=== PATIENT | female | born 1935 | race Caucasian/White ===

== ENCOUNTER → 2016-05-26 17:29 | Outpatient (CLI) | payer MEDICARE, MEDICAID ==
[2015-07-19 11:59] VITALS: BMI 42.4
[~2016-05-26 17:29] MED LIST: ALENDRONATE SOD70 MG PO; ASPIRIN325 MG PO; BACTRIM DS TABL1 TAB PO; CALTRATE 600 M600 M1 PO; COREG12.5 MG PO; FERROUS SULFAT325 MG PO; FISH OIL 1,0001 CA1 PO; FLAGYL500 MG PO; FLORANEX / LACT1 TAB PO; GLUCOTROL ER2.5 MG PO; GLUCOVANCE 5/501 TAB PO; HYDROCHLOROTH12.5 M1 PO; LANTUS INSULIN10 ML SC; LANTUS INSULIN10 ML SQ; LASIX20 MG PO; LISINOPRIL5 MG PO; MICRO-K10 MEQ PO; MYCOSTATIN 500,05 ML PO; NORVASC5 MG PO; PLAVIX75 MG PO; PRAVACHOL20 MG PO; PREDNISONE20 MG PO; PRILOSEC20 MG PO; PROVENTIL HFA6.7 GM INH; TRICOR145 MG PO; VITAMIN B-12 PO
[2016-05-26 18:35] LABS: BASOPHILS 0.4 % (0.0-2.0); EOSINOPHILS 4.4 % (0-7); HEMATOCRIT 32.9 % (36.0-48.0); HEMOGLOBIN 10.2 g/dL (12-16); IMMATURE GRANULOCYTES 0.2 % (0-5); MCH 29.2 pg (26.0-34.0); MCV 94.3 fL (80.0-100.0); MEAN PLATELET VOLUME 11.5 fL (7.4-10.4); MONOCYTES 10.4 % (2-11); NEUTROPHILS 62.6 % (40-80); PLATELET COUNT 164 10x3/uL (130-400); RBC 3.49 10x6/uL (4.00-5.40); RDW 13.9 % (11.5-14.5)
[2016-05-26 18:36] LABS: ANION GAP 10.8 mmol/L (8-16); CALCIUM 10.2 mg/dL (8.5-10.1); CARBON DIOXIDE 32.5 mmol/L (21.0-32.0); CREATININE - SERUM 1.6 mg/dL (0.6-1.3); POTASSIUM - SERUM 4.3 mmol/L (3.5-5.1)
[2016-05-26 19:03] LABS: HEMOGLOBIN A1C 6.6 % (4.8-6.0)
== END | disposition home or self-care (01) ==
LOC: D.LABREF 17:29
PROVIDERS: Family Medicine
DX: I50.9 Heart failure, unspecified (principal); E11.9 Type 2 diabetes mellitus without complications; J44.9 Chronic obstructive pulmonary disease, unspecified

== ENCOUNTER 2016-06-03 10:37 | Inpatient (IN) | payer MEDICARE, MEDICAID ==
[~2016-06-03] VITALS: Ht 157.5 cm; Wt 100.0 kg
[~2016-06-03 10:37] MED LIST changes: -BACTRIM DS TABL1 TAB PO; -GLUCOTROL ER2.5 MG PO; -LANTUS INSULIN10 ML SC; -PRAVACHOL20 MG PO
[2016-06-03] MEDS ORDERED: GLUCOTROL ER2.5 MG PO (11:10)
[2016-06-03] MEDS ORDERED: PRAVACHOL20 MG PO (11:11)
[2016-06-03] MEDS ORDERED: COREG12.5 MG PO (11:12)
[2016-06-03 11:16] VITALS: BP 174/53; BMI 36.6
--- NOTE | 2016-06-03 11:24 | NUR ---
PT ARRIVED TO ROOM VIA WHEELCHAIR. PARTIAL ADMIT. XRAY TOOK PT DOWN TO GET CHEST XRAY WILL FINISH ADMIT WHEN SHE ARRIVES BACK UP.
--- NOTE | 2016-06-03 11:47 | NUR ---
SITED PT TO R HAND 22G X2 STICKS. STARTED IV LEVAQUIN AND NS RUNNING NO PROBLEMS. PT WAITING ON LUNCH TRAY WILL CONT TO MONITOR.
[2016-06-03 12:08] LABS: BASOPHILS 0.2 % (0.0-2.0); EOSINOPHILS 2.6 % (0-7); HEMATOCRIT 33.4 % (36.0-48.0); HEMOGLOBIN 10.6 g/dL (12-16); LYMPHOCYTES 15.3 % (15-50); MCH 29.8 pg (26.0-34.0); MCHC 31.7 g/dL (31.0-37.0); MCV 93.8 fL (80.0-100.0); MEAN PLATELET VOLUME 10.6 fL (7.4-10.4); MONOCYTES 7.5 % (2-11); NEUTROPHILS 74.4 % (40-80); PLATELET COUNT 158 10x3/uL (130-400); RBC 3.56 10x6/uL (4.00-5.40); WBC 5.5 10x3/uL (4.8-10.8)
[2016-06-03 12:19] LABS: ALBUMIN 3.2 g/dL (3.4-5.0); BILIRUBIN - TOTAL 0.43 mg/dL (0.2-1.3); CALCIUM 10.1 mg/dL (8.5-10.1); CREATININE - SERUM 1.5 mg/dL (0.6-1.3)
[2016-06-03 12:29] VITALS: BP 174/53
[2016-06-03] MEDS ORDERED: LANTUS INSULIN10 ML SC (15:21)
[2016-06-03 16:42] VITALS: BP 129/31
--- NOTE | 2016-06-03 17:06 | NUR ---
APPLIED TELE TO PT SINUS RHYTHM 69 BPM. GIVEN INCENTIVE BRIAN TO USE AND GIVEN INSTRUCTIONS ON HOW TO USE.
[2016-06-03 20:00] VITALS: BP 164/50
--- NOTE | 2016-06-03 23:18 | NUR ---
PT ASSESSMENT COMPLETED AT THIS TIME CALL LIGHT IN REACH SRX2 BED LOW AND LOCKED NO DISTRESS OBSERVED RESPERATIONS EVEN AND UNLABORED WILL MONITOR
[2016-06-04 01:44] VITALS: BP 146/59
[2016-06-04 04:47] LABS: BASOPHILS 0 % (0.0-2.0); EOSINOPHILS 0 % (0-7); HEMATOCRIT 32.2 % (36.0-48.0); LYMPHOCYTES 17.9 % (15-50); MCH 29.2 pg (26.0-34.0); MCHC 31.1 g/dL (31.0-37.0); MCV 94.2 fL (80.0-100.0); MONOCYTES 3.4 % (2-11); NEUTROPHILS 78.7 % (40-80); PLATELET COUNT 148 10x3/uL (130-400); RBC 3.42 10x6/uL (4.00-5.40); RDW 14.1 % (11.5-14.5)
[2016-06-04 04:51] LABS: WBC 2.6 10x3/uL (4.8-10.8)
[2016-06-04 04:57] LABS: ANION GAP 10.6 mmol/L (8-16); CALCIUM 9.4 mg/dL (8.5-10.1); CARBON DIOXIDE 33.6 mmol/L (21.0-32.0); CREATININE - SERUM 1.6 mg/dL (0.6-1.3); POTASSIUM - SERUM 4.2 mmol/L (3.5-5.1)
--- NOTE | 2016-06-04 07:11 | NUR ---
PT SITTING UP IN BED DRINKING HER COFFEE. DENIES NEEDS WILL CONT TO MONITOR.
[2016-06-04 08:00] VITALS: BP 190/60
[2016-06-04 12:00] VITALS: BP 144/42
[2016-06-04 12:12] VITALS: Ht 157.5 cm; Wt 100.0 kg
--- NOTE | 2016-06-04 12:40 | CN ---
PATIENT NAME:KAVON JACKSON MEDICAL RECORD: [id number] : 35 LOCATION:D.M2 D.2106 ADMIT DATE: 06/03/16 ACCOUNT: [id number] CONSULTING PHYSICIAN: SHUN SHUKLA MD REFERRING PHYSICIAN: KAILEY CERON MD DATE OF CONSULTATION: 06/03/2016 CONSULT REQUESTING PHYSICIAN: Kailey Ceron MD. REASON FOR CONSULTATION: Pneumonia, left lower lobe, with acute exacerbation of COPD. HISTORY OF PRESENT ILLNESS: Ms. Jackson is an 81-year-old female, very poor historian. The patient is sick for the last few days. She is wheezing. She is coughing. She has shortness of breath. She was seen in the PCP office today and the chest radiograph showed some infiltrate and the patient was directly admitted. REVIEW OF SYSTEMS: Mainly in the history of present illness. PAST MEDICAL HISTORY: 1. COPD. 2. Coronary artery disease. 3. Congestive heart failure. 4. Hyperlipidemia. 5. Hypertension. 6. Chronic hypoxic respiratory failure. 7. Diabetes mellitus. 8. Diabetic neuropathy. 9. History of CVA. PAST SURGICAL HISTORY: 1. She has colonoscopy in the past. 2. Cholecystectomy. 3. Cardiac catheterization and stent placement. ALLERGIES: SHE IS ALLERGIC TO TESSALON PERLES. PERSONAL AND SOCIAL HISTORY: She is a heavy smoker, secondhand smoking exposure. She herself did smoke. She is a nondrinker. FAMILY HISTORY: Noncontributory. PHYSICAL EXAMINATION: GENERAL: Now, the patient is lying comfortably. She is not in acute distress. VITAL SIGNS: The blood pressure is 174/53, pulse is 66, respirations 19, temperature 98.2, SpO2 is 91% on 2 L nasal cannula. HEENT: Conjunctivae pink, sclerae nonicteric. NECK: Supple. No JVD. CHEST: Excursion is minimal on both sides, prolonged expiration with wheezing. There are crackles at the left base. HEART: Regular, normal sound, no murmur. ABDOMEN: Soft. Bowel sounds present. No hepatosplenomegaly. RECTAL: Deferred. EXTREMITIES: No cyanosis, no clubbing, no pedal edema. CONSULT REPORT [id number] KAVON JACKSON SKIN: Warm, normal turgor. CENTRAL NERVOUS SYSTEM: The patient is awake and alert. There are no obvious cranial nerve abnormalities. The gait was not tested. IMAGING: Chest radiograph, there is hyperinflation. There is infiltrate in left lower lobe. LABORATORY DATA: Hemoglobin 10.6, hematocrit 33.4. Chemistry: Sodium 134, potassium is 4, BUN is 33, creatinine 1.5, glucose 91. IMPRESSION: 1. Acute exacerbation of chronic obstructive pulmonary disease. 2. Chronic hypoxic respiratory failure. 3. Pneumonia, left lower lobe. 4. Coronary artery disease. 5. Congestive heart failure, possible systolic dysfunction. 6. Chronic kidney disease. RECOMMENDATION: Adjust the dose of Levaquin. Start her on Rocephin IV, methylprednisolone IV, albuterol/ipratropium nebulizer, Brovana and budesonide nebulizer. Continue Mucinex DM [address] Ceron, once again, thanks for involving me in the care of Ms. Jackson. TRANSINT:[id number] Voice Confirmation ID: [id number] DOCUMENT ID: [id number] SHUN SHUKLA MD at 1240 CC: KAILEY CERON MD [id number] DICTATION DATE: 06/03/16 1454 FISHING FLOATS ASSEMBLER: 06/03/[address] [facility] [address] [place] [address]
--- NOTE | 2016-06-04 13:27 | NUR ---
RECEIVED PT REPORT. WILL CONTINUE PLAN OF CARE. NO OTHER NEEDS. WILL CONTINUE TO MONITOR.
[2016-06-04 16:00] VITALS: BP 146/50
--- NOTE | 2016-06-04 16:26 | NUR ---
Patient Name: KAVON MONACO Admission Status: Urgent Accout number: [id number] Admission Date: 06-03-2016 : 1935 Admission Diagnosis:PNEUMONIA, UNSPECIFIED ORGANISM Attending: CIERA Current LOS: 1 Anticipated DC Date: Planned Disposition: Home Primary Insurance: [facility] Discharge Planning Comments: * Is the patient Alert and Oriented? Yes 0 * How many steps to enter\exit or inside your home? 4-5 0 * PCP DR. ROBERTSON 0 * Pharmacy [facility] [address] 0 * Preadmission Environment Home with Family 0 * ADLs Independent 0 * Equipment Glucometer Nebulizer Oxygen Rolling Walker 0 * Other Equipment HOME AND PORTABLE OXYGEN [facility] PATIENT - MEDICAL EQUIPMENT PROVIDER 0 * List name and contact numbers for known caregivers / representatives who currently or will assist patient after discharge: ERIN MONACO, SON, 0 * Community resources currently utilized Other 0 * Please name any agencies selected above. [facility] 0 * Additional services required to return to the preadmission environment? No 0 * Can the patient safely return to the preadmission environment? Yes 0 * Has this patient been hospitalized within the prior 30 days at any hospital? No 0 CM MET WITH PT IN ROOM TO DISCUSS DISCHARGE PLANNING AND NEEDS. PT REPORTS LIVING AT HOME INDEPENDENTLY WITH HER SON AND DAUGHTER. PT REPORTS HAVING ALL NEEDED MEDICAL EQUIPMENT WELL A PORTABLE OXYGEN CONCENTRATOR FROM [facility] PATIENT. PT HAS [facility] AND NO OTHER OUTSIDE SERVICES ASSISTING IN THE HOME. CM DISCUSSED AVAILABILITY OF HOME HEALTH, REHAB SERVICES AND MEDICAL EQUIPMENT. PT DENIES DISCHARGE NEEDS, REPORTS HER SON OR DAUGHTER WILL PICK HER UP FOR DISCHARGE HOME. PT PLANS TO DISCHARGE HOME WITH FAMILY, DENIES DISCHARGE NEEDS AT THIS TIME. CM TO FOLLOW AND ASSIST NEEDED. Nurse Practitioner Physician Assistant: Mick Albarran
[2016-06-04 20:24] VITALS: BP 177/48
--- NOTE | 2016-06-04 21:32 | NUR ---
SITTING IN BEDSIDE CHAIR. ALERT ORIENTED CONVERSANT. DENIES NEEDS. ASSISTED WITH RETURNING TO BED. AMBULATED INDEPENDANTLY.
[2016-06-05 01:07] VITALS: BP 166/52
[2016-06-05 05:01] VITALS: BP 150/56
[2016-06-05 05:34] LABS: BASOPHILS 0 % (0.0-2.0); EOSINOPHILS 0 % (0-7); HEMATOCRIT 30.5 % (36.0-48.0); HEMOGLOBIN 9.6 g/dL (12-16); IMMATURE GRANULOCYTES 0.3 % (0-5); LYMPHOCYTES 13.5 % (15-50); MCH 29.5 pg (26.0-34.0); MCHC 31.5 g/dL (31.0-37.0); MCV 93.8 fL (80.0-100.0); MEAN PLATELET VOLUME 10.7 fL (7.4-10.4); MONOCYTES 4.5 % (2-11); NEUTROPHILS 81.7 % (40-80); PLATELET COUNT 158 10x3/uL (130-400); RBC 3.25 10x6/uL (4.00-5.40); RDW 14.3 % (11.5-14.5)
[2016-06-05 05:37] LABS: WBC 3.3 10x3/uL (4.8-10.8)
[2016-06-05 05:55] LABS: ANION GAP 9.7 mmol/L (8-16); CALCIUM 9.2 mg/dL (8.5-10.1); CARBON DIOXIDE 32.1 mmol/L (21.0-32.0); CREATININE - SERUM 1.7 mg/dL (0.6-1.3); POTASSIUM - SERUM 4.8 mmol/L (3.5-5.1)
[2016-06-05 07:00] VITALS: BP 195/64
--- NOTE | 2016-06-05 07:23 | NUR ---
AM ROUNDING- PT SITTING UP IN CHAIR TALKING ON CELL PHONE. ON 02 AT 2L VIA NC. IV SEEN TO RIGHT HAND WITH NS RUNNING AT 50CC. PT IS ALERT AND ORIENTED. UP AD RADHA AND HAS SCDS AT BEDSIDE. NO NEED AT CURRENT TIME. WILL CONTINUE TO MONITOR.
--- NOTE | 2016-06-05 07:38 | NUR ---
ON MONITOR SHOWING SR, HR 66. PT DOES HAVE ELVATED T WAVE. WILL WAIT UNITL MAKES ROUNDS AND NOTIFY DOCTOR.
--- NOTE | 2016-06-05 10:40 | NUR ---
ALLIE FLEMING, SUPERVISOR ASBESTOS REMOVAL TO NOTIFY HER OF PTS ELEVATED TWAVE ON TELEMETRY. PTS POTASSIUM LEVEL IS 4.8. WILL CONTINUE TO MONITOR AND AWAIT CALLBACK.
--- NOTE | 2016-06-05 11:53 | NUR ---
1115- DR. CERON ON UNIT, NOTIFIED HER OF PT HAVING AN ELEVATED T-WAVE. NO NEW ORDERS RECEIVED. WILL CONTINUE TO MONITOR.
[2016-06-05 12:00] VITALS: BP 171/59
--- NOTE | 2016-06-05 12:08 | NUR ---
DR. CERON ON UNIT. NOTIFIED HER OF PTS BLOOD PRESSURE BEING 171/59. NO NEW ORDERS RECEIVED. WILL CONTINUE TO MONITOR.
[2016-06-05 16:00] VITALS: BP 164/56
--- NOTE | 2016-06-05 18:06 | NUR ---
PT SITTING UP IN CHAIR WATCHING TV. NO NEED AT CURRENT TIME. WILL CONTINUE TO MONITOR.
[2016-06-05 20:15] VITALS: BP 158/44
--- NOTE | 2016-06-05 22:08 | NUR ---
SITTING IN BEDSIDE CHAIR. ALERT ORIENTED CONVERSANT. NO ACUTE DISTRESS NOTED. DENIES NEEDS. FAMILY AT BEDSIDE.
[2016-06-06 00:05] VITALS: BP 167/50
[2016-06-06 04:12] VITALS: BP 154/53
--- NOTE | 2016-06-06 05:00 | NUR ---
PT RESTING WITH NO DISTRESS. RESPS EVEN/NONLABORED. CPOC.
[2016-06-06 05:02] LABS: BASOPHILS 0 % (0.0-2.0); EOSINOPHILS 0 % (0-7); HEMATOCRIT 32.2 % (36.0-48.0); LYMPHOCYTES 14.8 % (15-50); MCH 29.1 pg (26.0-34.0); MCHC 31.1 g/dL (31.0-37.0); MCV 93.6 fL (80.0-100.0); MEAN PLATELET VOLUME 10.3 fL (7.4-10.4); MONOCYTES 4.5 % (2-11); NEUTROPHILS 80.7 % (40-80); PLATELET COUNT 165 10x3/uL (130-400); RBC 3.44 10x6/uL (4.00-5.40); RDW 14.4 % (11.5-14.5); WBC 3.1 10x3/uL (4.8-10.8)
[2016-06-06 05:18] LABS: ANION GAP 11.2 mmol/L (8-16); CALCIUM 9.5 mg/dL (8.5-10.1); CARBON DIOXIDE 32.7 mmol/L (21.0-32.0); CREATININE - SERUM 1.6 mg/dL (0.6-1.3); POTASSIUM - SERUM 4.9 mmol/L (3.5-5.1)
--- NOTE | 2016-06-06 07:08 | NUR ---
AM ROUNDING- PT SITTING UP IN CHAIR WITH EYES OPEN RESTING. ON MONITOR SHOWING SR, HR 69 WITH TW[address] ELEVATION. NOTIFIED DR. CERON YESTERDAY ON SHIFT OF THIS WITH NO NEW ORDERS. FSBS ACHS THAT WAS COVERED THIS AM BY BAND PRESSER NURSE SOLIS MARTÍNEZ. ON 02 AT 2L VIA NC. IV SEEN TO RIGHT HAND WITH NS RUNNING AT 50CC. NO NEED AT CURRENT TIME. WILL CONTINUE TO MONITOR.
[2016-06-06 09:00] VITALS: BP 169/53
[2016-06-06 12:00] VITALS: BP 177/57
[2016-06-06 16:00] VITALS: BP 182/59
--- NOTE | 2016-06-06 18:16 | NUR ---
PT SITTING UP IN CHAIR WITH EYES OPEN RESTING. DENIES ANY NEED AT CURRENT TIME. WILL CONTINUE TO MONITOR.
[2016-06-06 20:00] VITALS: BP 160/48
--- NOTE | 2016-06-06 20:10 | NUR ---
RESUMED CARE OF PT, SITTING IN CHAIR TALKING ON PHONE, IV-R.HAND-50, [id number], DENIES ANY NEEDS, CALL LIGHT IN REACH, WILL CONTINUE TO MONITOR
[2016-06-07] VITALS: BP 150/53
--- NOTE | 2016-06-07 01:36 | NUR ---
PT SITTING UP IN CHAIR. NO DISTRESS NOTED. WILL CONTINUE TO MONITOR. CALL LIGHT WITHIN REACH.
[2016-06-07 04:00] VITALS: BP 192/63
--- NOTE | 2016-06-07 04:54 | NUR ---
PT REQUEST THAT BLOOD SUGAR BE CHECK, BS-52- GAVE ORANGE JUICE AND YG TALAVERA WILL RECHECK
[2016-06-07 05:30] LABS: BASOPHILS 0 % (0.0-2.0); EOSINOPHILS 0.2 % (0-7); HEMATOCRIT 34.6 % (36.0-48.0); HEMOGLOBIN 10.9 g/dL (12-16); IMMATURE GRANULOCYTES 0.2 % (0-5); LYMPHOCYTES 27.6 % (15-50); MCH 29.5 pg (26.0-34.0); MCHC 31.5 g/dL (31.0-37.0); MCV 93.5 fL (80.0-100.0); MEAN PLATELET VOLUME 10.3 fL (7.4-10.4); MONOCYTES 10.7 % (2-11); NEUTROPHILS 61.3 % (40-80); RDW 14.3 % (11.5-14.5)
[2016-06-07 05:35] LABS: PLATELET COUNT 220 10x3/uL (130-400); WBC 4.8 10x3/uL (4.8-10.8)
[2016-06-07 05:50] LABS: ANION GAP 8.4 mmol/L (8-16); CALCIUM 9.7 mg/dL (8.5-10.1); CARBON DIOXIDE 33.7 mmol/L (21.0-32.0); CREATININE - SERUM 1.5 mg/dL (0.6-1.3)
[2016-06-07 05:52] LABS: POTASSIUM - SERUM 4.1 mmol/L (3.5-5.1)
--- NOTE | 2016-06-07 07:40 | NUR ---
PT IS ALERT. RECEIVED PT REPORT. WILL CONTINUE PLAN OF CARE. NO OTHER NEEDS.
[2016-06-07 08:16] VITALS: BP 180/43
--- NOTE | 2016-06-07 09:57 | NUR ---
PT IS ALERT. ASSESSMENT DONE PER FLOWSHEET. NO OTHER NEEDS AT THIS TIME. WILL CONTINUE TO MONTIOR.
[2016-06-07 11:37] VITALS: BP 165/58
--- NOTE | 2016-06-07 13:57 | NUR ---
NO SS OF DISTRESS AT THIS TIME. WILL CONTINUE TO MONTIOR.
--- NOTE | 2016-06-07 14:41 | NUR ---
PT IS ALERT. FAMILY AT BEDSIDE. PT WAS GIVEN LOTION FOR DRY SKIN UPON REQUEST SHE SAID SHE WAS "DRYING UP". SHE WAS IN NO OTHER NEEDS AT THIS TIME. FAMILY STATES THAT SHE WAS ON NEOSPORIN WHILE AT THE HOUSE FOR THE DRYER SPOTS AND RN INFORMED THEM THAT THIS WOULD HAVE TO BE ORDERED BY PHYSICIAN. WILL CONTINUE TO JAMES.
[2016-06-07 15:10] LABS: T4 THYROXINE 10.4 ug/dL (4.7-13.3); THYROID STIMULATING HORMONE 3.74 uIU/mL (0.36-3.74)
[2016-06-07 15:53] VITALS: BP 144/59
--- NOTE | 2016-06-07 19:26 | NUR ---
PT IS SITTING IN A CHAIR IN HER ROOM DOING A UPDRAFT TX AT THIS TIME. SHE IS ALERT AND ORIENTED X 3. DENIES ACUTE DISCOMFORT. NO SOB NOTED. IV INFUSING TO RIGHT HAND WITHOUT DIFFICULTY. NO REDNESS OR EDEMA NOTED. O2 IS ON @ 2LPM PER NC. TELEMETRY UNIT IS INTACT. SR'S ARE UP X 2 WHILE IN BED. CALL LIGHT AND BEDSIDE TABLE ARE WITHIN EASY REACH.
[2016-06-07 20:00] VITALS: BP 142/42
--- NOTE | 2016-06-07 22:34 | NUR ---
PT IS RESTING IN A CHAIR IN HER ROOM WATCHING TV. NO NEEDS VOICED.
--- NOTE | 2016-06-07 23:40 | NUR ---
SITTING UP IN BEDSIDE CHAIR WITH BLANKET OVER LAP. VOICES NO C/O PAIN OR DISCOMFORT AT THIS TIME. C/L IN REACH. CONTINUE TO MONITOR.
[2016-06-08] VITALS: BP 148/49
--- NOTE | 2016-06-08 01:48 | NUR ---
RESTING IN BED WITH EYES CLOSED. NO DISTRESS NOTED.
--- NOTE | 2016-06-08 03:37 | NUR ---
PT RESTING IN BED WITH EYES CLOSED.
[2016-06-08 06:15] LABS: BASOPHILS 0 % (0.0-2.0); EOSINOPHILS 0.3 % (0-7); HEMATOCRIT 35.9 % (36.0-48.0); HEMOGLOBIN 11.2 g/dL (12-16); IMMATURE GRANULOCYTES 0.3 % (0-5); LYMPHOCYTES 27.8 % (15-50); MCH 29.2 pg (26.0-34.0); MCHC 31.2 g/dL (31.0-37.0); MCV 93.5 fL (80.0-100.0); MEAN PLATELET VOLUME 10.5 fL (7.4-10.4); NEUTROPHILS 61.6 % (40-80); PLATELET COUNT 229 10x3/uL (130-400); RBC 3.84 10x6/uL (4.00-5.40); RDW 14.7 % (11.5-14.5); WBC 3.6 10x3/uL (4.8-10.8)
[2016-06-08 06:26] LABS: ANION GAP 12.2 mmol/L (8-16); CARBON DIOXIDE 31.1 mmol/L (21.0-32.0); CREATININE - SERUM 1.7 mg/dL (0.6-1.3); POTASSIUM - SERUM 4.3 mmol/L (3.5-5.1)
--- NOTE | 2016-06-08 06:40 | NUR ---
PT IS SITTING IN A CHAIR AT BEDSIDE WATCHING TV. NO NEEDS VOICED.
--- NOTE | 2016-06-08 07:09 | NUR ---
RECEIVED PLAN OF CARE. NO OTHER NEEDS AT THIS TIME. WILL CONTINUE TO MONTIOR.
[2016-06-08 07:46] VITALS: BP 171/50
[2016-06-08 11:36] VITALS: BP 177/54
--- NOTE | 2016-06-08 14:28 | NUR ---
PT IS ALERT. ASSESSMENT DONE PER FLOWSHEET. NO OTHER NEEDS AT THIS TIME,.
[2016-06-08 15:18] VITALS: BP 154/48
--- NOTE | 2016-06-08 19:35 | NUR ---
ASSESSMENT COMPLETE, A&O. SITTING UP IN CHAIR AT BED SIDE. UP DRAFT IN PROGRESS. IV TO LEFT HAND WITH NS INFUSING AT 50, SITE CLEAN AND DRY. PT DENIES PAIN OR NEEDS, BED LOW, CL IN REACH.
[2016-06-08 20:02] VITALS: BP 159/64
--- NOTE | 2016-06-08 20:38 | NUR ---
HS MEDS GIVEN, BS 181, COVERED PER S/S. WILL CONT TO MONITOR.
--- NOTE | 2016-06-09 00:13 | NUR ---
ANSWERED CL. PT ASKING FOR BLOOD SUGAR TO BED CHECKED. RESULTED 39, SNACKS PROVIDED, GRAHM CRACKERS WITH PEANUTBUTTER, MILK, ORANGE JUICE AND APPLE SAUCE. WILL CONT TO MONITOR.
[2016-06-09 01:39] VITALS: BP 162/55
--- NOTE | 2016-06-09 03:26 | NUR ---
RESTING WITH EYES CLOSED, RESPERATIONS EVEN, NO S/S DISTRESS NOTED.
--- NOTE | 2016-06-09 04:11 | NUR ---
PT LAYING IN BED NO DISTRESS OBSERVED WILL MONITOR
[2016-06-09 04:37] VITALS: BP 175/46
[2016-06-09 08:00] VITALS: BP 103/36
[2016-06-09 09:34] LABS: BASOPHILS 0.2 % (0.0-2.0); EOSINOPHILS 1.1 % (0-7); HEMATOCRIT 32.7 % (36.0-48.0); HEMOGLOBIN 10.3 g/dL (12-16); IMMATURE GRANULOCYTES 0.2 % (0-5); LYMPHOCYTES 12.4 % (15-50); MCH 29.1 pg (26.0-34.0); MCHC 31.5 g/dL (31.0-37.0); MCV 92.4 fL (80.0-100.0); MEAN PLATELET VOLUME 10.4 fL (7.4-10.4); MONOCYTES 8.8 % (2-11); NEUTROPHILS 77.3 % (40-80); PLATELET COUNT 191 10x3/uL (130-400); RBC 3.54 10x6/uL (4.00-5.40); RDW 14.6 % (11.5-14.5)
[2016-06-09 09:36] LABS: WBC 6.4 10x3/uL (4.8-10.8)
[2016-06-09 09:44] LABS: ANION GAP 10.7 mmol/L (8-16); CALCIUM 9.8 mg/dL (8.5-10.1); CARBON DIOXIDE 31.6 mmol/L (21.0-32.0); CREATININE - SERUM 1.8 mg/dL (0.6-1.3); POTASSIUM - SERUM 4.3 mmol/L (3.5-5.1)
[2016-06-09 12:09] VITALS: BP 109/46
--- NOTE | 2016-06-09 13:27 | NUR ---
Nutrition follow-up: Diet: ADA consistent CHO PO Intake ~75-100% of meals Labs reviewed; glucose has been trending low Wt: 216# +BM Will continue to provide food choices with selective menus and honor food preferences within diet restrictions. RDN following.
[2016-06-09 17:46] VITALS: BP 147/60
[2016-06-09 19:56] VITALS: BP 149/50
--- NOTE | 2016-06-09 21:00 | NUR ---
PT SITTING UP IN CHAIR. COUGH IN PRODUCTIVE WITH CLEAR SPUTUM. NOT ENOUGH FOR COLLECTION BUT WORKING ON IT. COMPLETE ASSESSMENT PER FLOWSHEET. PT WILL BE NPO AFTER 0600 FOR BRONCHOSCOPY TOMORROW. NO OTHER NEEDS. WILL CONTINUE TO MONITOR.
[2016-06-10] VITALS (11 sets, daily range): BP systolic 103–153; BP diastolic 39–89
[2016-06-10 07:04] LABS: ANION GAP 12.9 mmol/L (8-16); CALCIUM 9.9 mg/dL (8.5-10.1); CARBON DIOXIDE 29.1 mmol/L (21.0-32.0); CREATININE - SERUM 1.9 mg/dL (0.6-1.3)
[2016-06-10 07:09] LABS: BASOPHILS 0 % (0.0-2.0); EOSINOPHILS 1.8 % (0-7); HEMATOCRIT 32.6 % (36.0-48.0); HEMOGLOBIN 10.3 g/dL (12-16); IMMATURE GRANULOCYTES 0.2 % (0-5); LYMPHOCYTES 20.6 % (15-50); MCH 29.1 pg (26.0-34.0); MCHC 31.6 g/dL (31.0-37.0); MCV 92.1 fL (80.0-100.0); MEAN PLATELET VOLUME 10.8 fL (7.4-10.4); MONOCYTES 8.9 % (2-11); NEUTROPHILS 68.5 % (40-80); PLATELET COUNT 185 10x3/uL (130-400); RBC 3.54 10x6/uL (4.00-5.40); RDW 14.8 % (11.5-14.5); WBC 5.6 10x3/uL (4.8-10.8)
--- NOTE | 2016-06-10 09:41 | NUR ---
PT IS ALERT. ASSESSMENT DONE PER FLOWSHEET. NO OTHER NEEDS AT THIS TIME. WILL CONTINUE TO MONITOR.
--- NOTE | 2016-06-10 11:00 | NUR ---
22G IV STARTED IN RIGHT HAND. SALINE LOCKED. PT TOLERATED WELL. IV IN LEFT HAND DCD WITH CATH TIP INTACT. RESP. IN ROOM
--- NOTE | 2016-06-10 12:47 | NUR ---
PT RESTING SP BROHNCOSCOPY. WILL CONTINUE TO MONITOR. NO SS OF DISTRESS AT THIS TIME. NO OTHER NEEDS
[2016-06-11] VITALS (9 sets, daily range): BP systolic 125–153; BP diastolic 41–53
--- NOTE | 2016-06-11 01:19 | NUR ---
PATIENT IN CHAIR, NO COMPLAINTS OF PAIN OR NEEDS INDICATED AT THIS TIME. CALL LIGHT WITHIN REACH. ASESSMENT COMPLETE PER FLOWSHEET. CONTINUE TO MONITOR
[2016-06-11 04:43] LABS: BASOPHILS 0 % (0.0-2.0); EOSINOPHILS 0.1 % (0-7); HEMATOCRIT 33.7 % (36.0-48.0); HEMOGLOBIN 10.6 g/dL (12-16); IMMATURE GRANULOCYTES 0.2 % (0-5); LYMPHOCYTES 7.9 % (15-50); MCH 29.3 pg (26.0-34.0); MCHC 31.5 g/dL (31.0-37.0); MCV 93.1 fL (80.0-100.0); MEAN PLATELET VOLUME 10.8 fL (7.4-10.4); MONOCYTES 4.8 % (2-11); PLATELET COUNT 169 10x3/uL (130-400); RBC 3.62 10x6/uL (4.00-5.40); RDW 14.7 % (11.5-14.5)
[2016-06-11 04:54] LABS: ANION GAP 9.9 mmol/L (8-16); CALCIUM 9.4 mg/dL (8.5-10.1); CARBON DIOXIDE 30.4 mmol/L (21.0-32.0); CREATININE - SERUM 2.1 mg/dL (0.6-1.3); POTASSIUM - SERUM 4.3 mmol/L (3.5-5.1)
--- NOTE | 2016-06-11 07:00 | NUR ---
Pt. was received at the beginning of this shift sitting in the chair beside her bed with her granddaughter visiting her. Stable condition observed. Vital signs: Temp. 97.8, pulse 62, resp. 17, b/p143/42, 02Sat. 93%. Pt. is on an oxymizer with 10L's going. Rt. hand with saline lock that is patent. Telemetry on and working properly. Pt. is alert and oriented x 3. Pt. denied any concerns or problems. Will be monitoring her frequently and assisting prn with adl's. Call light is in reach.
--- NOTE | 2016-06-11 14:06 | NUR ---
IV access-22 gauge inserted in right hand for IV access. Bhavana Gomez RN
--- NOTE | 2016-06-11 14:39 | NUR ---
Pt. has had her IV resited per hospital IV nurse. Levofloxin infusing via pump at prescribed rate of flow. Blood sugar levels are being monitored and treated per MD order. Pt. is sitting beside bed in chair with granddaughter present. Breathing treatments are being administered throughout the shift as well. Pt. continues to be in stable condition. No voiced complaints to staff. Continuing to monitor and assist prn.
[2016-06-11 15:22] LABS: AFB SPECIMEN PROCESSING Concentration (())
--- NOTE | 2016-06-11 17:21 | NUR ---
Pt. is sitting in chair beside her bed with pillow behind her for stability. She has eatten almost 100% of her supper and is watching tv. She is friendly and seems to be happy this afternoon. Her blood sugar levels have been monitored closely today.
[2016-06-12 00:15] VITALS: BP 132/60
[2016-06-12 04:20] VITALS: BP 131/44
[2016-06-12 05:22] LABS: BASOPHILS 0 % (0.0-2.0); EOSINOPHILS 0 % (0-7); HEMOGLOBIN 9.6 g/dL (12-16); IMMATURE GRANULOCYTES 0.3 % (0-5); LYMPHOCYTES 11.3 % (15-50); MCH 29.1 pg (26.0-34.0); MEAN PLATELET VOLUME 10.5 fL (7.4-10.4); MONOCYTES 7.3 % (2-11); NEUTROPHILS 81.1 % (40-80); PLATELET COUNT 157 10x3/uL (130-400); RDW 14.6 % (11.5-14.5)
[2016-06-12 05:26] LABS: MCV 90.9 fL (80.0-100.0); WBC 6.2 10x3/uL (4.8-10.8)
[2016-06-12 05:53] LABS: ALBUMIN 2.5 g/dL (3.4-5.0); BILIRUBIN - TOTAL 0.4 mg/dL (0.2-1.3); CALCIUM 8.9 mg/dL (8.5-10.1); CREATININE - SERUM 2.1 mg/dL (0.6-1.3); PROTEIN - SERUM 5.8 g/dL (6.4-8.2)
--- NOTE | 2016-06-12 07:23 | NUR ---
RECEIVED PT REPORT. NO OTHER NEEDS AT THIS TIME. WILL CONTINUE TO MONITOR.
[2016-06-12 08:39] VITALS: BP 156/50
--- NOTE | 2016-06-12 10:35 | NUR ---
PT IS ALERT. ASSESSMENT DONE PER FLOWSHEET. NO OTHER NEEDS AT THIS TIME. WILL CONTINUE TO MONITOR.
[2016-06-12 12:22] VITALS: BP 168/50
[2016-06-12 12:37] LABS: % SATURATION 7 % (15-55); IRON 23 ug/dl (35-150); TOTAL IRON BIND CAPACITY 296 ug/dl (260-445); UNSAT IRON BIND CAPACITY 273 ug/dl (150-375)
--- NOTE | 2016-06-12 13:50 | NUR ---
NO SS OF DISTRESS AT THIS TIME. WILL CONTINUE TO MONITOR. NO OTHER NEEDS
[2016-06-12 16:14] VITALS: BP 151/55
--- NOTE | 2016-06-12 19:09 | NUR ---
RESUMED CARE OF PT, SITTING UP IN CHAIR, 02-2L, IV-R.HAND-SL, [id number], DENIES ANY NEEDS AT THIS TIME, WILL CONTINUE TO MONITOR
[2016-06-12 20:02] VITALS: BP 134/37
--- NOTE | 2016-06-12 21:40 | NUR ---
PT LAYING IN BED, WATCHING TV. NO NEEDS OR C/O VOICED. WILL CONT TO MONITOR.
--- NOTE | 2016-06-12 23:53 | NUR ---
PT SITTING UP IN CHAIR SLEEPING, CALL LIGHT IN REACH
[2016-06-13 00:14] VITALS: BP 129/40
--- NOTE | 2016-06-13 02:12 | NUR ---
WALKED TO BATHROOM, WHEN COMING BACK COMPLAINED OF SOB, PLACED O2 ON HER 2L
[2016-06-13 04:13] VITALS: BP 134/41
[2016-06-13 06:06] LABS: BASOPHILS 0 % (0.0-2.0); EOSINOPHILS 0.1 % (0-7); HEMATOCRIT 32.3 % (36.0-48.0); HEMOGLOBIN 10.4 g/dL (12-16); IMMATURE GRANULOCYTES 0.4 % (0-5); LYMPHOCYTES 12.5 % (15-50); MCH 29.3 pg (26.0-34.0); MCHC 32.2 g/dL (31.0-37.0); MEAN PLATELET VOLUME 10.3 fL (7.4-10.4); RBC 3.55 10x6/uL (4.00-5.40); RDW 14.5 % (11.5-14.5); WBC 7.5 10x3/uL (4.8-10.8)
[2016-06-13 06:11] LABS: PLATELET COUNT 192 10x3/uL (130-400)
[2016-06-13 06:23] LABS: ANION GAP 11.1 mmol/L (8-16); CALCIUM 9.3 mg/dL (8.5-10.1); CARBON DIOXIDE 30.3 mmol/L (21.0-32.0); CREATININE - SERUM 1.8 mg/dL (0.6-1.3); POTASSIUM - SERUM 4.4 mmol/L (3.5-5.1)
[2016-06-13 08:00] VITALS: BP 156/59
--- NOTE | 2016-06-13 10:39 | NUR ---
UP IN CHAIR WITH CALL LIGHT IN REACH. TELEMETRY SR. 02 SAT 98% ON RA. WILL CONT. PLAN OF CARE.
[2016-06-13 11:53] VITALS: BP 157/55
[2016-06-13 15:57] VITALS: BP 162/67
--- NOTE | 2016-06-13 19:30 | NUR ---
SITTING UP IN CHAIR, WITH NO S/S/ RESP UNLAV. UP AD RADHA W/O DIFF. DENIES NEEDS AT THIS TIME. C/L IN REACH.
[2016-06-13 20:36] VITALS: BP 134/50
[2016-06-14 01:24] VITALS: BP 121/54
[2016-06-14 04:35] LABS: BASOPHILS 0 % (0.0-2.0); EOSINOPHILS 0.2 % (0-7); HEMATOCRIT 32.6 % (36.0-48.0); HEMOGLOBIN 10.4 g/dL (12-16); IMMATURE GRANULOCYTES 0.4 % (0-5); LYMPHOCYTES 15.6 % (15-50); MCH 29.2 pg (26.0-34.0); MCHC 31.9 g/dL (31.0-37.0); MCV 91.6 fL (80.0-100.0); MEAN PLATELET VOLUME 10.6 fL (7.4-10.4); MONOCYTES 7.1 % (2-11); NEUTROPHILS 76.7 % (40-80); PLATELET COUNT 191 10x3/uL (130-400); RBC 3.56 10x6/uL (4.00-5.40); RDW 14.4 % (11.5-14.5)
[2016-06-14 04:37] LABS: WBC 4.8 10x3/uL (4.8-10.8)
[2016-06-14 04:58] LABS: ANION GAP 11.2 mmol/L (8-16); CALCIUM 9.4 mg/dL (8.5-10.1); CREATININE - SERUM 1.8 mg/dL (0.6-1.3); PHOSPHOROUS 3.4 mg/dL (2.5-4.9)
[2016-06-14 05:02] LABS: POTASSIUM - SERUM 5.2 mmol/L (3.5-5.1)
[2016-06-14 06:26] VITALS: BP 142/80
--- NOTE | 2016-06-14 07:44 | NUR ---
SITTING UP IN CHAIR, DENIES NEEDS AT PRESENT TIME. ON 2L PER NC. ON HEART MONITOR SHOWING SB, HR 59. RIGHT FA SEEN WITH SALINE LOCK. 3+ EDEMA SEEN TO BILATERA LOWER LEGS. WILL CONTINUE TO MONITOR.
[2016-06-14 07:47] VITALS: BP 135/44
[2016-06-14 11:10] VITALS: BP 134/44
[2016-06-14 13:47] LABS: FUNGUS STAIN Final report (())
[2016-06-14 16:27] VITALS: BP 139/47
--- NOTE | 2016-06-14 16:46 | NUR ---
PATIENT HAS BEEN IN THE CHAIR ALL DAY WITH HER LEGS DOWN, WILL NOT LAY DOWN. SHE LAYS HER HEAD ON THE TABLE TO REST. WILL ENCOURAGE HER TO LAY DOWN AFTER SUPPER AND PROP HER LEGS UP. CONTINUE TO MONITOR.
--- NOTE | 2016-06-14 19:30 | NUR ---
IN BED, LYING ON LEFT SIDE, AROUSES EASILY, VOICES NO C/O PAIN OR DISCOMFORT AT THIS TIME. HOB UP SR UP X2, C/L IN REACH. CONTINUE TO MONITOR.
[2016-06-14 20:00] VITALS: BP 150/50
[2016-06-15] VITALS: BP 155/52
[2016-06-15 04:00] VITALS: BP 150/84
[2016-06-15 05:11] LABS: BASOPHILS 0 % (0.0-2.0); EOSINOPHILS 0.4 % (0-7); HEMATOCRIT 31.5 % (36.0-48.0); IMMATURE GRANULOCYTES 0.6 % (0-5); LYMPHOCYTES 15.2 % (15-50); MCHC 31.7 g/dL (31.0-37.0); MCV 91.3 fL (80.0-100.0); MEAN PLATELET VOLUME 10.1 fL (7.4-10.4); MONOCYTES 7.8 % (2-11); PLATELET COUNT 191 10x3/uL (130-400); RBC 3.45 10x6/uL (4.00-5.40); RDW 14.7 % (11.5-14.5)
[2016-06-15 05:46] LABS: ANION GAP 8.8 mmol/L (8-16); CALCIUM 9.1 mg/dL (8.5-10.1); CARBON DIOXIDE 34.3 mmol/L (21.0-32.0); CREATININE - SERUM 1.7 mg/dL (0.6-1.3); POTASSIUM - SERUM 5.1 mmol/L (3.5-5.1)
--- NOTE | 2016-06-15 07:18 | NUR ---
AM ROUNDING MADE, AROUSES EASILY. IN BED. BILATERAL LEGS UP ON PILLOWS, 2-3+ EDEMA SEEN TO LEGS THIS AM, NOT TIGHT. SALINE LOCK SEEN TO RIGHT FA, ON HEART MONITOR SHWOING SR, HR 67. ON 2L PER NC. WILL CONTINUE TO MONITOR.
[2016-06-15 07:32] VITALS: BP 158/56
--- NOTE | 2016-06-15 09:17 | NUR ---
ASSISTED TO CHAIR FOR THE DAY. SLIGHT CRACKES HEARD THROUGHOUT THE LUNG SUNG, CLEARING WITH COUGHING. WILL CONTINUE TO MONITOR.
[2016-06-15 11:34] VITALS: BP 169/43
[2016-06-15] MEDS ORDERED: BACTRIM DS TABL1 TAB PO (13:55)
--- NOTE | 2016-06-15 14:41 | NUR ---
PATIENT TAKEN OF O2, SAT IS 94%. PATIENT STATES THAT SHE WORE O2 APPROX. 3 MONTHS AGO AND STILL HAS THE MACHINE AT HOME. 1452-O2 SAT IS NOW 91%. WILL CONTINUE TO MONITOR. SHIVANI MICHAELS) IS NOTIFIED OF THIS.
--- NOTE | 2016-06-15 15:19 | NUR ---
Patient Name: KAVON MONACO Encounter No: [id number] : 1935 Primary Insurance: [id number] Anticipated DC Date: 06-15-2016 Planned Disposition: Home WITH HOME HEALTH External Planned Provider: [facility] / [facility] (OXYGEN SERVICE PROVIDER) DCP follow-up note: CM MET WITH PT AND SON IN ROOM TO DISCUSS DISCHARGE NEEDS AND PLANNING. CM DISCUSSED AVAILABILITY OF HOME HEALTH, REHAB SERVICES AND MEDICAL EQUIPMENT. PT DENIES DISCHARGE NEEDS REPORTING [facility]. CM DISCUSSED HOW TO ACCESS HOME HEALTH NURSING AND THERAPY SERVICES THROUGH [facility] OR PCP IF NEEDED. PT AND SON REPORTED UNDERSTANDING. PT'S SON TO TRANSPORT HOME AT DISCHARGE. IMPORTANT MESSAGE FROM MEDICARE PROVIDED AND EXPLAINED. CM CALLED ALL HOME HEALTH COMPANIES IN [place], LOCATED THAT PT IS ACTIVE WITH [employer], ON HOSPITAL HOLD. CM SPOKE TO PT'S NURSE WHO REPORTS THAT PT HAS HOME AND PORTABLE OXYGEN AT HOME BUT DID NOT BRING PORTABLE AND HAS NOT BEEN WEARING HOME OXYGEN FOR THREE MONTHS. CM SPOKE TO PT IN ROOM; PT WOULD LIKE HOME HEALTH TO RESUME AND DOES HAVE OXYGEN BUT DID NOT THINK SHE NEEDED IT SO NOT WEARING IT AT HOME. PT CALLED HER FAMILY AT HOME, DETERMINED THAT PT HAS [facility] FOR OXYGEN PROVIDER. CM CALLED [email or web address], , SPOKE TO SNEHAL WHO VERIFIED PT IS ACTIVE WITH HOME AND PORTABLE OXYGEN. [facility] TO DELIVER PORTABLE OXYGEN TO PT'S ROOM FOR DISCHARGE HOME. CM CALLED [facility] [phone], SPOKE TO KRISTY AND NOTIFIED OF PT'S DISCHARGE HOME TODAY FOR HOME HEALTH RESUMPTION. CM FAXED DISCHARGE INFORMATION TO [facility] AT [phone]. PT AND SON NOTIFIED. BEDSIDE NURSE NOTIFIED. NO FURHTER DISCHARGE NEEDS IDENTIFIED. Mick Albarran, CASE MANAGEMENT
[2016-06-15 15:33] VITALS: BP 88/64
--- NOTE | 2016-06-15 17:12 | NUR ---
VERBAL AND WRITTEN DISCHARGE INSTRUCIONS TO PATIENT. SALINE LOCK REMOVED WITH CATH TIP INTACT. DISCHARGED HOME WITH PORTABLE O2 PER WHEELCHAIR.
[2016-07-14 11:19] LABS: FUNGUS MYCOLOGY CULTURE Final report (())
[2016-07-30 11:18] LABS: ACID FAST CULTURE Negative (()); ACID FAST SMEAR Negative (())
== END 2016-06-15 17:13 | disposition home health service (06) | DRG 190 ==
LOC: D.M2 10:37
PROVIDERS: Family Medicine; Internal Medicine Pulmonary Disease; ADMIT Emergency Medicine
PROC: 0BB38ZX Excision of Right Main Bronchus, Via Natural or Artificial Opening Endoscopic, Diagnostic (ICD-10-PCS; 2016-06-10)
PROC: 0BB78ZX Excision of Left Main Bronchus, Via Natural or Artificial Opening Endoscopic, Diagnostic (ICD-10-PCS; principal; 2016-06-10 11:24)
DX: J44.0 Chronic obstructive pulmonary disease with (acute) lower respiratory infection (principal); J18.1 Lobar pneumonia, unspecified organism; I50.23 Acute on chronic systolic (congestive) heart failure; J15.6 Pneumonia due to other Gram-negative bacteria; I13.0 Hypertensive heart and chronic kidney disease with heart failure and stage 1 through stage 4 chronic kidney disease, or unspecified chronic kidney disease; N17.9 Acute kidney failure, unspecified; J96.11 Chronic respiratory failure with hypoxia; J98.11 Atelectasis; T17.590A Other foreign object in bronchus causing asphyxiation, initial encounter; J44.1 Chronic obstructive pulmonary disease with (acute) exacerbation; I25.10 Atherosclerotic heart disease of native coronary artery without angina pectoris; E11.22 Type 2 diabetes mellitus with diabetic chronic kidney disease; N18.9 Chronic kidney disease, unspecified; E11.40 Type 2 diabetes mellitus with diabetic neuropathy, unspecified; M81.0 Age-related osteoporosis without current pathological fracture; E55.9 Vitamin D deficiency, unspecified; D64.9 Anemia, unspecified; E78.5 Hyperlipidemia, unspecified; Z86.73 Personal history of transient ischemic attack (TIA), and cerebral infarction without residual deficits; Z72.0 Tobacco use

== ENCOUNTER → 2016-09-10 15:06 | Outpatient (CLI) | payer MEDICARE, MEDICAID ==
[2016-06-04 12:12] VITALS: BMI 36.6
[~2016-09-10 15:06] MED LIST changes: +BACTRIM DS TABL1 TAB PO; +GLUCOTROL ER2.5 MG PO; +LANTUS INSULIN10 ML SC; +PRAVACHOL20 MG PO
[2016-09-10 16:38] LABS: HEMOGLOBIN A1C 6.9 % (4.8-6.0)
== END | disposition home or self-care (01) ==
LOC: D.LABREF 15:06
PROVIDERS: Family Medicine
DX: E11.9 Type 2 diabetes mellitus without complications (principal)

== ENCOUNTER 2016-10-12 10:47 | Outpatient (CLI) | payer MEDICARE, MEDICAID ==
[~2016-10-12] VITALS: Ht 157.5 cm; Wt 96.8 kg
--- NOTE | ~2016-10-12 | HEMODYNAMI ---
PATIENT:KAVON MONACO MEDICAL RECORD: [id number] : 35 LOCATION:D.CAT ADMISSION DATE: 10/12/16 Generatedon:10/12/201614:14 Patient name: KAVON MONACO Patient #: [id number] SSN: : 1935 Date of study: 10/12/2016 Page: Of Hemodynamic Procedure Report Patient Data Patient Demographics First Name: KAVON Gender: Female Last Name: CARLOS ENRIQUE : 1935 Middle Initial: JADEN Age: 81 year(s) Patient #: [id number] Race: Unknown Additional ID: [id number] Contact details Address: [address] [place] [address] State: [place] City: [place] Zip code: [address] Past Medical History Allergies Allergen Reaction Date Comments Reported Other allergy 10/12/2016 Valerie Carney Admission Admission Data Admission Date: 10/12/2016 Admission Time: 10:47 Lab Results Lab Result Date: 10/12/2016 Lab Result Time: 0:00 Biochemistry Name Units Result Min Max BUN mg/dl 46 --(----)-* 7 18 Creatinine mg/dl 1.7 --(----)-* 0.6 1.3 CBC Name Units Result Min Max Hemoglobin g/dl 11 *-(----)-- 13.5 17.5 Procedure Procedure Types Cath Procedure Diagnostic Procedure C [facility] w/Coronaries PCI Procedure PTCA Initial Miscellaneous Procedures Moderate Sedation up to 30 minutes Procedure Description Procedure Date Procedure Date: 10/12/2016 Procedure Start Time: 13:46 Procedure End Time: 14:08 Procedure Staff Name Function Aman Mcclellan MD Performing Physician Brayan Guzman RT Scrub Elizabeth Holt RN Nurse Zeke Hinds RT Monitor Procedure Data Cath Procedure Fluoroscopy Diagnostic fluoroscopy Total fluoroscopy Time: 5 time: 5 min min Diagnostic fluoroscopy Total fluoroscopy dose: 983 dose: 983 mGy mGy Contrast Material Contrast Material Type Amount (ml) Isovue 300 97 Entry Location Entry Primary Successful Side Size Upsize Upsize Entry Closure Succes sful Closure Location (Fr) 1 (Fr) 2 (Fr) Remarks Device Remarks Femoral Right 5 Fr 6 Fr Exoseal artery Short Diagnostic catheters Device Type Used For End Catheter Placement Cordis 5Fr JL 4.0 Left Coronary Catheter (MP) Angiography Cordis 5Fr 3DRC Catheter Right Coronary (MP) Angiography Cordis 5Fr Pigtail LV Angiography Catheter (MP) Procedure Complications No complications Procedure Medications Medication Administration Route Dosage Oxygen NC 2 l/min Heparin Flush Bag added to field 2 bags (1000units/500ml NS) Lidocaine 2% added to field 20 Versed I.V. 0.5 mg Fentanyl I.V. 25 mcg Versed I.V. 0.5 mg Fentanyl I.V. 25 mcg Versed I.V. 0.5 mg Fentanyl I.V. 25 mcg Heparin Bolus I.V. 9500 units Versed I.V. 0.5 mg Fentanyl I.V. 25 mcg Hemodynamics Rest Heart Rate: 73 (bpm) Pressure Samples Time Site Value (mmHg) Purpose Heart Use Rate(bpm) 13:54 LV 126/50,50 EDP 73 13:55 LV 125/17,22 Snapshot 67 13:55 AO 135/57(85) Pullback 61 13:55 LV 131/14,-6 Pullback 61 Gradients Valve Time Site 1 Site 2 Mean SEP/DFP Peak To Heart Use (mmHg) (sec/min) Peak Rate (mmHg) (bpm) Aortic 13:55 LV AO 0 5 0 61 131/14,-6 135/57(85) Calculations Valve P-P Mean Valve Index Valve Source Name Gradient Area Flow (cm2) Aortic 0 0 0 0 Snapshots Pre Cath Intra NCS Post Cath Vital Signs Time Heart Resp SPO2 NIBP (mmHg) Rhythm Pain Sedation Rate (ipm) (%) Status Level (bpm) 13:29:23 85 18 99 157/75(127) A-Fib 0 (11) 10(A) , No pain 13:34:22 102 19 98 Measuring A-Fib 0 (11) 10(A) , No pain 13:35:32 106 18 99 155/94(126) A-Fib 0 (11) 10(A) , No pain 13:39:46 78 16 95 119/67(93) A-Fib 0 (11) 10(A) , No pain 13:44:02 85 12 96 112/66(97) A-Fib 0 (11) 10(A) , No pain 13:48:53 85 19 96 122/85(111) A-Fib 0 (11) 9(A) , No pain 13:53:05 84 16 96 120/85(107) A-Fib 0 (11) 9(A) , No pain 13:57:17 93 16 96 138/77(103) A-Fib 0 (11) 9(A) , No pain 14:01:25 97 16 96 105/64(90) A-Fib 0 (11) 9(A) , No pain 14:05:32 93 18 96 102/70(100) A-Fib 0 (11) 9(A) , No pain 14:07:11 88 19 96 109/63(103) A-Fib 0 (11) 10(A) , No pain Medications Time Medication Route Dose Verified Delivered Reason Notes Effectiveness by by 13:31:21 Oxygen NC 2 Aman Elizabeth Per physician l/min Gene Holt RN 13:31:28 Heparin Flush added 2 Aman Aman used for Bag to bags Gene Mcclellan MD procedure (1000units/500ml field NS) 13:31:35 Lidocaine 2% added 20ml Aman Aman used for to vial eGne Mcclellan MD procedure field 13:41:07 Versed I.V. 0.5 Aman Elizabeth for sedation mg Gene Holt RN 13:41:17 Fentanyl I.V. 25 Aman Elizabeth for sedation mcg Gnee Holt RN 13:44:17 Versed I.V. 0.5 Aman Elizabeth for sedation mg Gene Holt RN 13:44:26 Fentanyl I.V. 25 Aman Elizabeth for sedation mcg Gene Holt RN 13:47:33 Versed I.V. 0.5 Aman Elizabeth for sedation mg Gene Holt RN 13:49:45 Fentanyl I.V. 25 Aman Elizabeth for sedation mcg Gene Holt RN 13:58:27 Heparin Bolus I.V. 9500 Aman Elizabeth for dose units Gene Holt RN anticoagulation verified with dr mcclellan 14:00:29 Versed I.V. 0.5 Aman Elizabeth for sedation mg Gene Holt RN 14:00:33 Fentanyl I.V. 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 12:38:16 Diagnostic Cath status Elective 12:38:21 Time tracking: Regular hours 12:38:25 Plan of Care:Hemodynamics will remain stable., Cardiac rhythm will remain stable., Comfort level will be maintained., Respiratory function will remain adequate., Patient/ family verbilizes understanding of procedure., Procedure tolerated without complication., Recovers from procedure without complications.. 12:50:14 Zeke Hinds RT(R) sent for patient. Start room use. 13:18:08 H&P Date Dictated: 09/29/2016 Within 30 days and on chart., H&P Addendum completed by physician on day of procedure. (MUST COMPLETE FOR ALL OUTPATIENTS). 13:18:11 Pre-procedure instructions explained to patient. 13:18:15 Family in waiting room. 13:18:17 Patient NPO since Midnight. 13:18:44 Patient allergic to Other allergyTessalon Perles 13:28:05 Vital chart was started 13:31:21 Oxygen 2 l/min NC was administered by Elizabeth Holt RN; Per physician; 13:31:28 Heparin Flush Bag (1000units/500ml NS) 2 bags added to field was administered by Aman Mcclellan MD; used for procedure; 13:31:35 Lidocaine 2% 20ml vial added to field was administered by Aman Mcclellan MD; used for procedure; 13:36:34 Is the patient allergic to Iodine/contrast media? No. 13:36:45 Is patient on blood thinner?Yes 13:36:48 ACC The patient was administered the following blood thiners within the last 24 hours: ACCPlavix 13:36:50 Patient diabetic? Yes. 13:36:51 If diabetic: On Metformin? No 13:36:54 ----Pre-sedation anethsthesia assessment.---- 13:36:56 Previous problem with sedation/anesthesia? No ? 13:36:57 Snore? Yes 13:36:58 Sleep apnea? No 13:37:00 Deviated septum? No 13:37:01 Opens mouth fully? Yes 13:37:02 Sticks out tongue? Yes 13:37:06 Airway obstruction? Yes COPD 13:37:12 Dentures? N/A NO TEETH 13:37:16 Pre procedure: right dorsailis pedis pulse 1+ Palpable, but thready & weak; easily obliterated 13:37:20 Patient pain scale 0/10 ?. 13:37:33 IV patent on arrival in right hand with 0.9% NaCl at 10ml/hr. 13:38:01 Lab Result : BUN 46 mg/dl 13:38:01 Lab Result : Creatinine 1.7 mg/dl 13:38:01 Lab Result : Hemoglobin 11 g/dl 13:38:04 Lab results completed and on chart. 13:38:07 Right groin area was prepped with chlora-prep and draped in sterile fashion 13:38:07 Alarms reviewed by R. N. 13:38:08 Sharps counted by scrub and verified by R.N. 13:38:09 --------ALL STOP TIME OUT------ 13:38:09 Final Timeout: patient, procedure, and site verified with staff and physician. All members of the team are in agreement. 13:38:13 Right groin site verified by team. 13:38:15 Physical assessment completed. ASA score P 2 - A patient with mild systemic disease as per Aman Mcclellan MD. 13:38:19 Sedation plan: IV Moderate Sedation Versed, Fentanyl 13:41:06 Use device set Femoral Dx 13:41:07 Versed 0.5 mg I.V. was administered by Elizabeth Holt RN; for sedation; 13:41:07 Acist Syringe opened to sterile field. 13:41:07 Bag Decanter opened to sterile field. 13:41:08 Medline Cath Pack opened to sterile field. 13:41:08 Terumo 5Fr [place] Sheath opened to sterile field. 13:41:09 St [place] 260cm J .035 wire opened to sterile field. 13:41:10 Acist Hand Control opened to sterile field. 13:41:10 Acist Manifold opened to sterile field. 13:41:11 Diagnostic Infinity 5Fr Multipack catheter opened to sterile field. 13:41:11 Tegaderm 4 x 4 opened to sterile field. 13:41:17 Fentanyl 25 mcg I.V. was administered by Elizabeth Holt RN; for sedation; 13:44:17 Versed 0.5 mg I.V. was administered by Elizabeth Holt RN; for sedation; 13:44:26 Fentanyl 25 mcg I.V. was administered by Elizabeth Holt RN; for sedation; 13:46:21 Procedure started. 13:46:21 Full Disclosure recording started 13:46:59 Local anesthetic to right femoral artery with Lidocaine 2% by Aman Mcclellan MD.INITIAL ACCESS ONLY 13:47:27 A 5 Fr sheath was inserted into the Right Femoral artery 13:47:33 Versed 0.5 mg I.V. was administered by Elizabeth Holt RN; for sedation; 13:47:52 A Cordis 5Fr JL 4.0 Catheter (MP) was advanced over the wire and used for Left Coronary Angiography. 13:47:56 LCA angiography performed. 13:48:42 Zero performed for pressure channel P1 13:49:45 Fentanyl 25 mcg I.V. was administered by Elizabeth Holt RN; for sedation; 13:51:03 Catheter removed. 13:51:44 A Cordis 5Fr 3DRC Catheter (MP) was advanced over the wire and used for Right Coronary Angiography. 13:52:16 RCA angiography performed. 13:52:48 Catheter removed. 13:53:31 A Cordis 5Fr Pigtail Catheter (MP) was advanced over the wire and used for LV Angiography. 13:53:36 LV angiography performed. 13:53:39 LV gram done using LUNA 13:53:40 LV hemodynamics recorded. 13:53:50 Injector settings: Ml/sec: 10, Volume: 20, 13:55:24 EF : 60 % 13:55:36 Catheter removed. 13:57:14 High Pressure Extension Tubing (Gene) opened to sterile field. 13:57:14 Villalba BMW [place] 2 J-tip 300cm 0.014 guide wir opened to sterile field. 13:57:15 CleanApp BasixCompak Inflation Kit opened to sterile field. 13:57:15 Terumo 6Fr [place] Sheath opened to sterile field. 13:57:16 Cordis 6FR XBLAD 3.5 guide catheter opened to sterile field. 13:57:24 Sheath upsized to a 6 Fr Short. 13:57:31 6 Fr XBLAD 3.5 guide catheter was inserted over the wire 13:58:23 ACC PCI Site: mLAD has 90% stenosis. 13:58:26 ACC Pre-intervention BETZY Flow is 3. 13:58:27 Heparin Bolus 9500 units I.V. was administered by Elizabeth Holt RN; for anticoagulation; dose verified with dr mcclellan 13:58:31 BMW 2 J wire advanced. 14:00:29 Versed 0.5 mg I.V. was administered by Elizabeth Holt RN; for sedation; 14:00:33 Fentanyl 25 mcg I.V. was administered by Elizabeth Holt RN; for sedation; 14:01:14 Inflation number: 1 A Friona Sci Reeves 3.0 X 20 balloon was prepped and advanced across the Mid LAD, then inflated to 12 RAUL for 0:40 (min:sec). 14:01:44 Inflation number: 2 The Friona Sci Reeves 3.0 X 20 balloon was reinflated across the Mid LAD, to 14 RAUL for 0:28 (min:sec). 14:03:17 Inflation number: 3 The Friona Sci Reeves 3.0 X 20 balloon was reinflated across the Mid LAD, to 15 RAUL for 0:29 (min:sec). 14:04:17 Balloon removed over the wire. 14:04:17 Wire removed. 14:04:18 Guide catheter removed. 14:04:32 Procedure type changed to Cath procedure, Diagnostic procedure, LHC, LHC w/Coronaries, PCI procedure, PTCA Initial, Miscellaneous Procedures, Moderate Sedation up to 30 minutes 14:04:50 Cordis 6Fr Exoseal opened to sterile field. 14:05:16 Sheath removed intact; hemostasis achieved with Exoseal to the Right Femoral artery. 14:05:24 Procedure ended.(Physican Out) 14:05:49 Fluoroscopy time 05.00 minutes. 14:05:54 Fluoroscopy dose: 983 mGy 14:05:54 Flurop Dose total: 983 14:06:09 Contrast amount:Isovue 300 97ml. 14:06:10 Sharps counted by scrub and verified by R.N. 14:06:11 Insertion/operative site no bleeding no hematoma. 14:06:13 Post-op/insertion site Right Femoral artery dressed using a 4 x 4 and Tegaderm. 14:06:16 Post right femoral artery:stable 14:06:18 Post Procedure Pulses reassessed and unchanged 14:06:19 Post procedure: right dorsailis pedis pulse 1+ Palpable, but thready & weak; easily obliterated. 14:06:22 Post procedure rhythm: sinus rhythm 14:06:26 Post procedure instruction explained to patient.Patient verbalizes understanding. 14:07:15 Procedure and supply charges have been captured, reviewed, submitted and are correct. 14:08:00 Procedure Complication : No complications 14:08:02 Vital chart was stopped 14:08:03 See physician's report for complete and final results. 14:08:05 Report given to Pre/Post Procedure Room. 14:08:09 Patient transfered to Pre/Post Procedure Room with Stretcher. 14:08:11 Procedure ended. 14:08:11 Full Disclosure recording stopped 14:08:17 End room use (Document Last) Intervention Summary Intervention Notes Time ActionType Lesion and Equipment Action# Pressure Duration Attributes Used 14:01:14 Inflate Mid LAD Friona 1 12 00:40 balloon Sci Reeves 3.0 X 20 balloon 14:01:44 Reinflate Mid LAD Friona 2 14 00:28 balloon Sci Reeves 3.0 X 20 balloon 14:03:17 Reinflate Mid LAD Friona 3 15 00:29 balloon Sci Reeves 3.0 X 20 balloon Device Usage Item Name Manufacture Quantity Catalog Number Hospital Part Current Mini [facility] Lot# / Charge Number Stock Stock Serial# Code Acist Acist 1 [id number] [id number] [id number] 820369 20 Syringe [employer] Systems Inc Bag Microtek 1 [id number] [id number] 39227 866990 5 Decanter Medical Inc. Medline Cardinal 1 [id number] 635167 64860 305653 5 Cath Pack Bindo Terumo 5Fr Terumo 1 [id number] 929269 329793 [address] [place] 1 [id number] 707749 047218 201090 30 260cm J .035 wire Acist Hand Acist 1 25200 046721 145634 988611 5 Control Medical Systems Inc Acist Acist 1 57176 872785 376746 074258 5 Manifold Medical Systems Inc Diagnostic Cardinal 1 [id number] 965908 62616 658695 30 Infinity Health 5Fr Multipack catheter Tegaderm 4 3M 1 1626W 904703 182171 217639 5 x 4 Cordis 5Fr Cardinal 1 513910 5 JL 4.0 Health Catheter (MP) Cordis 5Fr Cardinal 1 594497 5 3DRC Health Catheter (MP) Cordis 5Fr Cardinal 1 764582 5 Pigtail Health Catheter (MP) High Merit 1 [id number] 885034 93536 080558 10 Pressure Medical Extension Tubing (Mcclellan) Villalba BMW Villalba 1 [id number] 062407 738757 613244 5 [place] 2 Vascular J-tip 300cm 0.014 guide wir Merit Merit 1 [id number] 984787 800043 993561 15 BlueView TechnologiesixNewvem Medical Inflation Kit Terumo 6Fr Terumo 1 [id number] 049348 583781 267236 40 [place] Sheath Cordis 6FR Cardinal 1 [id number] 911820 991648 929980 10 XBLAD 3.5 Health guide catheter Friona Sci Friona 1 [id number] 597627 303850 188072 1 [id number] n2v Solutions 3.0 X 20 balloon Cordis 6Fr Cardinal 1 [id number] 469169 440666 887146 10 [facility] Bindo Signature Audit Arthur Stage Time Signature Unsigned Intra-Procedure 10/12/2016 Zeke Hinds 2:14:01 PM RT(R) Signatures Monitor : Zeke Hinds RT Signature : Date : Time : [place] [id number] [place] [address]
--- NOTE | ~2016-10-12 | OP ---
PATIENT NAME: KAVON MONACO MEDICAL RECORD: [id number] :35 LOCATION:D.CAT ADMISSION DATE: SURGEON: ADEEL CORLEY M.D. DATE OF OPERATION: 10/12/2016 REFERRING PHYSICIAN: Kailey Siddiqui MD. PROCEDURES PERFORMED: 1. Selective coronary angiography. 2. Left heart catheterization with ventriculogram. 3. PTCA to the LAD. INDICATION: An 81-year-old woman with history of coronary artery disease who presents with accelerating angina and abnormal stress test. EQUIPMENT USED: A 5-Mongolian JL4, Victoriano right, pigtail catheter. INTERVENTION: A 6-Mongolian XB LAD guide, BMW guide wire, 3.0 x 20 mm Monona balloon. TECHNIQUE: A 5-Mongolian sheath was inserted in retrograde fashion in the right common femoral artery. Next, selective coronary angiography was performed in standard 5-Mongolian JL4 and Victoriano right. Left heart catheterization performed using pigtail catheter. CORONARY ANATOMY: 1. Left main: Left main trunk is moderate in caliber. It gives rise to the LAD and circumflex. There is no obstruction. 2. LAD: This is a large caliber vessel extending to the apex. The proximal mid vessel has been stented. The proximal and mid vessel demonstrates a 90% in-stent restenosis. 3. Circumflex: This vessel is moderate in caliber. The proximal ____ widely patent. Beyond the bifurcation, the vessel is diffusely diseased. 4. Right coronary: This vessel is moderate in caliber and dominant. The mid vessel has been stented. The stent demonstrates a long 70% to 80% in-stent restenosis. 5. Left ventricle: Left ventricle is normal in size and function. No wall motion abnormalities are seen. Its ejection fraction is 60%. DESCRIPTION OF INTERVENTION: A 1 units per kilogram of heparin was infused. A 6-Mongolian sheath was placed in retrograde fashion in the right common femoral artery. Next, a 6-Mongolian XB LAD guide was advanced and engaged the left main coronary artery. Next, a BMW guide wire was placed in the distal LAD. A 3.0 x 20 mm Monona balloon was advanced and placed across both lesions. Long inflations performed at 16 atmospheres. Injections revealed in the mid lesion a 0% residual stenosis. The proximal vessel has demonstrated persistent 30% residual stenosis. It was felt that further dilation might cause perforation of the vessel. At this point, the wire and guide were removed. IMPRESSION: Successful percutaneous transluminal coronary angioplasty of the LAD for restenosis. RECOMMENDATIONS: We will likely ____ right coronary artery lesion as her creatinine is mildly elevated. We will bring her back in 1-2 weeks for this purpose. OPERATIVE REPORT [id number] KAVON MONACO TRANSINT:[id number] Voice Confirmation ID: [id number] DOCUMENT ID: [id number] ADEEL CORLEY M.D. CC: [id number] DICTATION DATE: 10/12/161411 [employer]PER[employer]OR [employer]: 10/12/162115 DEP CLI 10/12/16 [address] [place] [address]
[2016-10-12 11:18] VITALS: BP 159/66; Ht 157.5 cm; Wt 96.8 kg
[2016-10-12 11:42] LABS: BASOPHILS 0.5 % (0-2); EOSINOPHILS 6.8 % (0-7); HEMATOCRIT 34.5 % (36.0-48.0); MCH 30.8 pg (26.0-34.0); MCHC 31.9 g/dL (31.0-37.0); MCV 96.6 fL (80.0-100.0); MEAN PLATELET VOLUME 11.2 fL (7.4-10.4); MONOCYTES 11.3 % (2-11); NEUTROPHILS 54.4 % (40-80); RBC 3.57 10x6/uL (4.00-5.40); RDW 13.5 % (11.5-14.5); WBC 3.8 10x3/uL (4.8-10.8)
[2016-10-12 11:44] LABS: PLATELET COUNT 137 10x3/uL (130-400)
[2016-10-12 12:01] LABS: ANION GAP 11.5 mmol/L (8-16); CALCIUM 9.8 mg/dL (8.5-10.1); CARBON DIOXIDE 30.3 mmol/L (21.0-32.0); CREATININE - SERUM 1.7 mg/dL (0.6-1.3); POTASSIUM - SERUM 3.8 mmol/L (3.5-5.1)
--- NOTE | 2016-10-12 14:45 | NUR ---
RIGHT GROIN CDI, NO HEMATOMA OR BLEEDING NOTED AT SITE
--- NOTE | 2016-10-12 15:15 | NUR ---
RESTING, RIGHT GROIN CDI, NO HEMATOMA OR BLEEDING
--- NOTE | 2016-10-12 18:20 | NUR ---
IV D'C WITH CATH TIP INTACT, UP TO REST ROOM-VOID, WRITTEN AND VERBAL INSTRUCTIONS GIVEN TO PT AND FAMILY- UNDERSTOOD. D'C HOME
== END 2016-10-12 18:30 | disposition home or self-care (01) ==
LOC: D.CATH 10:47
PROVIDERS: Internal Medicine Cardiovascular Disease
DX: I25.110 Atherosclerotic heart disease of native coronary artery with unstable angina pectoris (principal); T82.855A Stenosis of coronary artery stent, initial encounter; Z01.812 Encounter for preprocedural laboratory examination

== ENCOUNTER 2016-11-17 09:50 | Outpatient (CLI) | payer MEDICARE, MEDICAID ==
[~2016-11-17] VITALS: Ht 157.5 cm; Wt 97.3 kg
--- NOTE | ~2016-11-17 | HEMODYNAMI ---
PATIENT:KAVON MONACO MEDICAL RECORD: [id number] : 35 LOCATION:D.CAT ADMISSION DATE: 11/17/16 Generatedon:11/17/201613:40 Patient name: KAVON MONACO Patient #: [id number] SSN: : 1935 Date of study: 11/17/2016 Page: Of Hemodynamic Procedure Report Patient Data Patient Demographics Procedure consent was obtained First Name: KAVON Gender: Female Last Name: CARLOS ENRIQUE : 1935 [facility] Initial: JADEN Age: 81 year(s) Patient #: [id number] Race: Unknown Additional ID: [id number] Contact details [address]: [address] [place] [address] State: [place] City: [place] Zip code: [address] Past Medical History Allergies Allergen Reaction Date Comments Reported Other allergy 10/12/2016 [place] Angelika Other allergy 11/17/2016 [place] sabra Admission Admission Data Admission Date: 11/17/2016 Admission Time: 9:50 Lab Results Lab Result Date: 11/17/2016 Lab Result Time: 0:00 Biochemistry Name Units Result Min Max BUN mg/dl 41 --(----)-* 7 18 Creatinine mg/dl 1.5 --(----)-* 0.6 1.3 CBC Name Units Result Min Max Hemoglobin g/dl 11.6 *-(----)-- 13.5 17.5 Procedure Procedure Types Cath Procedure PCI Procedure Coronary Stent Initial Miscellaneous Procedures Moderate Sedation up to 30 minutes Procedure Description Procedure Date Procedure Date: 11/17/2016 Procedure Start Time: 13:16 Procedure End Time: 13:35 Procedure Staff Name Function Aman Mcclellan MD Performing Physician Luis Angel Villalpando RN Nurse Zeke Hinds RT Monitor Brayan Guzman RT Scrub Procedure Data Cath Procedure Fluoroscopy Diagnostic fluoroscopy Total fluoroscopy Time: 4.5 time: 4.5 min min Diagnostic fluoroscopy Total fluoroscopy dose: 391 dose: 391 mGy mGy Contrast Material Contrast Material Type Amount (ml) Isovue 300 63 Entry Location Entry Primary Successful Side Size Upsize Upsize Entry Closure Succes sful Closure Location (Fr) 1 (Fr) 2 (Fr) Remarks Device Remarks Femoral Right 6 Fr Exoseal artery Short Procedure Complications No complications Procedure Medications Medication Administration Route Dosage Oxygen NC 2 l/min Lidocaine 2% added to field 20 Heparin Flush Bag added to field 2 bags (1000units/500ml NS) 0.9% NaCl I.V. 100 ml/hr Versed I.V. 1 mg Fentanyl I.V. 50 mcg Fentanyl I.V. 25 mcg Heparin Bolus I.V. 27335 units Versed I.V. 0.5 mg Hemodynamics Rest HGB: 11.6 (g/dl) Heart Rate: 80 (bpm) Snapshots Pre Cath Intra NCS Post Cath Vital Signs Time Heart Resp SPO2 etCO2 WN9psri NIBP (mmHg) Rhythm Pain Sedation Rate (ipm) (%) (mmHg) (mmHg) Status Level (bpm) 13:02:41 73 20 95 0 0 152/79(129) NSR 0 (11) 10(A) , No pain 13:07:09 81 15 99 0 0 112/82(84) NSR 0 (11) 10(A) , No pain 13:11:21 85 16 95 0 0 128/72(105) NSR 0 (11) 10(A) , No pain 13:15:37 74 17 94 0 0 115/72(98) NSR 0 (11) 9(A) , No pain 13:20:32 78 16 95 0 0 123/73(109) NSR 0 (11) 9(A) , No pain 13:24:44 76 15 94 0 0 102/49(76) NSR 0 (11) 9(A) , No pain 13:28:58 66 16 94 0 0 98/48(76) NSR 0 (11) 9(A) , No pain 13:33:08 92 16 96 0 0 115/58(94) NSR 0 (11) 10(A) , No pain Medications Time Medication Route Dose Verified Delivered Reason Notes Effectiveness by by 13:03:02 Oxygen NC 2 Aman Buffie used for l/min Gene Villalpando workplace rehabilitation officer 13:03:09 Lidocaine 2% added 20ml Aman Aman for local to vial Gene Mcclellan MD anesthetic field 13:03:15 Heparin Flush added 2 bags Aman Aman used for Bag to Gene Mcclellan MD procedure (1000units/500ml field NS) 13:03:24 0.9% NaCl I.V. 100 Aman Buffie Per physician ml/hr Gene Villalpando RN 13:12:02 Versed I.V. 1 mg Aman Buffie for sedation Gene Villalpando RN 13:12:08 Fentanyl I.V. 50 mcg Aman Buffie for sedation Gene Villlapando RN 13:19:25 Fentanyl I.V. 25 mcg Aman Buffie for sedation Gene Villalpando RN 13:21:25 Heparin Bolus I.V. 10,000 Aman Buffie for verif ied units Gene Villalpando RN anticoagulation with dr mcclellan 13:26:41 Versed I.V. 0.5 mg Aman Buffie for sedation Gene Villalpando RN Procedure Log Time Note 12:30:55 Brayan PEREYRA(R) sent for patient. Start room use. 12:43:57 Time tracking: Regular hours 12:44:02 Plan of Care:Hemodynamics will remain stable., Cardiac rhythm will remain stable., Comfort level will be maintained., Respiratory function will remain adequate., Patient/ family verbilizes understanding of procedure., Procedure tolerated without complication., Recovers from procedure without complications.. 12:55:37 Patient received from Pre/Post Procedure Room to CCL 1 Alert and oriented. Tansferred to table in Supine position. 12:55:38 Warm blankets applied, and asiya hugger turned on for patient comfort. 12:55:39 Correct patient and procedure confirmed by team. 12:55:40 Signed procedure consent form obtained from patient. 12:55:41 ECG and BP/O2 sat monitors applied to patient. 13:01:24 Vital chart was started 13:03:02 Oxygen 2 l/min NC was administered by Luis Angel Villalpando RN; used for procedure; 13:03:09 Lidocaine 2% 20ml vial added to field was administered by Aman Mcclellan MD; for local anesthetic; 13:03:15 Heparin Flush Bag (1000units/500ml NS) 2 bags added to field was administered by Aman Mcclellan MD; used for procedure; 13:03:24 0.9% NaCl 100 ml/hr I.V. was administered by Luis Angel Villalpando RN; Per physician; 13:04:30 Baseline sample Acquired. 13:04:33 Rhythm: sinus rhythm 13:04:34 Full Disclosure recording started 13:04:45 H&P Date Dictated: 11/11/2016 Within 30 days and on chart., H&P Addendum completed by physician on day of procedure. (MUST COMPLETE FOR ALL OUTPATIENTS). 13:04:47 Pre-procedure instructions explained to patient. 13:04:47 Pre-op teaching completed and patient verbalized understanding. 13:04:49 Family in waiting room. 13:04:51 Patient NPO since Midnight. 13:05:15 Patient allergic to Other allergytessalon pearles 13:05:17 Is the patient allergic to Iodine/contrast media? No. 13:05:21 Is patient on blood thinner?Yes 13:05:24 ACC The patient was administered the following blood thiners within the last 24 hours: ACCPlavix 13:05:28 Patient diabetic? Yes. 13:05:30 If diabetic: On Metformin? Yes 13:05:33 If on Metformin: Last Dose? 11/15/2016 13:05:34 ----Pre-sedation anethsthesia assessment.---- 13:05:38 Previous problem with sedation/anesthesia? No ? 13:05:40 Snore? Yes 13:05:41 Sleep apnea? No 13:05:43 Deviated septum? No 13:05:44 Opens mouth fully? Yes 13:05:46 Sticks out tongue? Yes 13:06:02 Airway obstruction? Yes COPD 13:06:08 Dentures? No NO TEETH 13:06:11 Pre procedure: right dorsailis pedis pulse 1+ Palpable, but thready & weak; easily obliterated 13:06:14 Patient pain scale 0/10 ?. 13:06:20 IV patent on arrival in right hand with 0.9% NaCl at 10ml/hr. 13:09:33 Lab Result : BUN 41 mg/dl 13:09:33 Lab Result : Hemoglobin 11.6 g/dl 13:09:33 Lab Result : Creatinine 1.5 mg/dl 13:11:10 Lab results completed and on chart. 13:11:14 Right groin area was prepped with chlora-prep and draped in sterile fashion 13:11:16 Alarms reviewed by R. N. 13:11:17 Sharps counted by scrub and verified by R.N. 13:11:17 --------ALL STOP TIME OUT------ 13:11:18 Final Timeout: patient, procedure, and site verified with staff and physician. All members of the team are in agreement. 13:11:19 Right groin site verified by team. 13:11:22 Physical assessment completed. ASA score P 2 - A patient with mild systemic disease as per Aman Mcclellan MD. 13:11:26 Sedation plan: IV Moderate Sedation Versed, Fentanyl 13:11:31 Use device set Femoral PCI 13:11:32 Acist Syringe opened to sterile field. 13:11:33 Acist Hand Control opened to sterile field. 13:11:33 Bag Decanter opened to sterile field. 13:11:33 Medline Cath Pack opened to sterile field. 13:11:34 Terumo 6Fr Maud Sheath opened to sterile field. 13:11:34 [place] 260cm J .035 wire opened to sterile field. 13:11:35 Merit BasixCompak Inflation Kit opened to sterile field. 13:11:35 Acist Manifold opened to sterile field. 13:11:35 Tegaderm 4 x 4 opened to sterile field. 13:12:02 Versed 1 mg I.V. was administered by Luis Angel Villalpando RN; for sedation; 13:12:08 Fentanyl 50 mcg I.V. was administered by Luis Angel Villalpando RN; for sedation; 13:13:23 Procedure started. 13:13:38 High Pressure Extension Tubing (Gene) opened to sterile field. 13:13:39 Villalba BMW [place] 2 J-tip 300cm 0.014 guide wir opened to sterile field. 13:13:48 Medtronic Launcher 6Fr AR 1.0 guide catheter opened to sterile field. 13:16:09 Local anesthetic to right femoral artery with Lidocaine 2% by Aman Mcclellan MD.INITIAL ACCESS ONLY 13:16:17 A 6 Fr Short sheath was inserted into the Right Femoral artery 13:16:34 ACC Pre-intervention BETZY Flow is 3. 13:16:44 Study PCI Site: [place] Dehe mRCA has 80% stenosis. 13:16:49 6 Fr AR 1 guide catheter was inserted over the wire 13:18:23 Zero performed for pressure channel P1 13:19:25 Fentanyl 25 mcg I.V. was administered by Luis Angel Villalpando RN; for sedation; 13:21:25 Heparin Bolus 10,000 units I.V. was administered by Luis Angel Villalpando RN; for anticoagulation; verified with dr mcclellan 13:22:03 BMW 2 wire advanced. 13:24:33 Inflation number: 1 A Mozec Rx 2.5 x 20 balloon was prepped and advanced across the Mid RCA, then inflated to 12 RAUL for 0:13 (min:sec). 13:25:19 Balloon removed over the wire. 13:26:41 Versed 0.5 mg I.V. was administered by Luis Angel Villalpando RN; for sedation; 13:27:34 Inflation Number: 2 A Medtronic Resolute 3.0 X 30 stent was prepped and advanced across the Mid RCA. The stent was deployed at 14 RAUL for 0:16 (min:sec). 13:28:58 Stent catheter was removed intact over wire. 13:32:29 Inflation Number: 3 A Ayden OTW 3.5 x 22 stent was prepped and advanced across the Mid RCA. The stent was deployed at 14 RAUL for 0:20 (min:sec). 13:32:30 Stent catheter was removed intact over wire. 13:32:30 Wire removed. 13:32:31 Guide catheter removed. 13:32:35 Contrast amount:Isovue 300 63ml. 13:32:42 Sheath removed intact; hemostasis achieved with Exoseal to the Right Femoral artery. 13:32:43 Procedure ended.(Physican Out) 13:33:33 Cordis 6Fr Exoseal opened to sterile field. 13:33:39 Fluoroscopy time 04.50 minutes. 13:33:43 Fluoroscopy dose: 391 mGy 13:33:43 Flurop Dose total: 391 13:33:45 Sharps counted by scrub and verified by R.N. 13:33:46 Insertion/operative site no bleeding no hematoma. 13:33:49 Post-op/insertion site Right Femoral artery dressed using a 4 x 4 and Tegaderm. 13:33:52 Post right femoral artery:stable 13:33:54 Post Procedure Pulses reassessed and unchanged 13:33:57 Post procedure: right dorsailis pedis pulse 1+ Palpable, but thready & weak; easily obliterated. 13:34:00 Post procedure rhythm: sinus rhythm 13:34:02 Post procedure instruction explained to patient.Patient verbalizes understanding. 13:34:12 Procedure type changed to Cath procedure, PCI procedure, Coronary Stent Initial, Miscellaneous Procedures, Moderate Sedation up to 30 minutes 13:35:12 Procedure and supply charges have been captured, reviewed, submitted and are correct. 13:35:17 Procedure Complication : No complications 13:35:19 Vital chart was stopped 13:35:19 See physician's report for complete and final results. 13:35:27 Report given to Pre/Post Procedure Room. 13:35:30 Patient transfered to Pre/Post Procedure Room with Stretcher. 13:35:32 Procedure ended. 13:35:32 Full Disclosure recording stopped 13:35:36 End room use (Document Last) Intervention Summary Intervention Notes Time ActionType Lesion and Equipment Action# Pressure Duration Attributes Used 13:24:33 Inflate Mid RCA Mozec Rx 1 12 00:13 balloon 2.5 x 20 balloon 13:27:34 Place stent Mid RCA Medtronic 2 14 00:16 Resolute 3.0 X 30 stent 13:32:29 Place stent Mid RCA Ayden OTW 3 14 00:20 3.5 x 22 stent Device Usage Item Name Manufacture Quantity Catalog Hospital Part Current Minima l Lot# / Number Charge Number Stock Stock Serial# Code Acist Acist 1 [id number] [id number] [id number] 20 Syringe Medical Systems Inc Acist Hand Acist 1 79486 075434 567703 393224 5 Control Medical Systems Inc Bag Microtek 1 2002S 173419 03546 350677 5 BioCer[employer]. Medline Cardinal 1 [id number] 451733 05165 497018 5 Individual Digital Terumo 6Fr Terumo 1 [id number] 595012 435055 396402 [address] [address] [place] 1 [id number] 613342 970898 627618 30 260cm J .035 wire Merit Merit 1 [id number] 190112 855747 265452 15 [employer] Medical Inflation Kit Acist Acist 1 06070 245523 699772 058960 5 PixelSteam Medical [employer] Inc Tegaderm 4 3M 1 1626W 314910 459017 665432 5 x 4 High Merit 1 [id number] 457730 49478 305123 10 Pressure Medical Extension Tubing (Mcclellan) Villalba BMW Villalba 1 [id number] 723356 542214 462964 5 [place] 2 Vascular J-tip 300cm 0.014 guide wir Medtronic Medtronic 1 [id number] 764533 38104 050590 1 Launcher 6Fr AR 1.0 guide catheter Mozec Rx Cardinal 1 [id number] 450682 97414 405439 5 [id number] 2.5 x 20 Health balloon Medtronic Medtronic 1 [id number] 087227 979928 4 [id number] Resolute 3.0 X 30 stent Ayden OTW Medtronic 1 [id number] 482157 5228324 266354 5 [id number] 3.5 x 22 stent Cordis 6Fr Cardinal 1 [id number] 814159 583172 161679 10 [facility] Decalog Signature Audit [place] Stage Time Signature Unsigned Intra-Procedure 11/17/2016 Zeke Hinds 1:40:39 PM RT(R) Signatures Monitor : Zeke Hinds RT Signature : Date : Time : [place] [address] [place] [address]
[2016-11-17 10:24] VITALS: BP 141/63; Ht 157.5 cm; Wt 97.3 kg
[2016-11-17 11:09] LABS: HEMATOCRIT 36.3 % (36.0-48.0); HEMOGLOBIN 11.6 g/dL (12-16); LYMPHOCYTES 28.8 % (15-50); MCH 30.1 pg (26.0-34.0); MCV 94.3 fL (80.0-100.0); NEUTROPHILS 56.6 % (40-80); PLATELET COUNT 113 10x3/uL (130-400); RBC 3.85 10x6/uL (4.00-5.40); RDW 13.2 % (11.5-14.5); WBC 3.6 10x3/uL (4.8-10.8)
[2016-11-17 11:12] LABS: BASOPHILS 0.6 % (0-2); EOSINOPHILS 6.7 % (0-7); MONOCYTES 10.3 % (2-11)
[2016-11-17 11:23] LABS: ANION GAP 9.5 mmol/L (8-16); CARBON DIOXIDE 34.9 mmol/L (21.0-32.0); CREATININE - SERUM 1.5 mg/dL (0.6-1.3); POTASSIUM - SERUM 4.4 mmol/L (3.5-5.1)
--- NOTE | 2016-11-17 14:05 | NUR ---
3L NC, NO RESP DISTRESS NOTED. RIGHT GROIN 6F EXOSEAL CDI, NO BLEEDING OR HEMATOMA NOTED. VSS. NO C/O PAIN OR NAUSEA. INSTRUCTED PT TO KEEP HEAD FLAT ON PILLOW AND RIGHT LEG STRAIGHT.
--- NOTE | 2016-11-17 14:35 | NUR ---
3L NC, NO RESP DISTRESS NOTED. RIGHT GROIN 6F EXOSEAL CDI, NO BLEEDING OR HEMATOMA NOTED. VSS. NO C/O AT THIS TIME. WILL CONTINUE TO MONITOR.
--- NOTE | 2016-11-17 14:50 | NUR ---
3L NC, NO RESP DISTRESS NOTED. RIGHT GROIN 6F EXOSEAL CDI, NO BLEEDING OR HEMATOMA NOTED. VSS. NO C/O PAIN. CALL LIGHT WITHIN REACH.
--- NOTE | 2016-11-17 15:20 | NUR ---
QUIETLY RESTING. VSS. 2L NC, NO RESP DISTRESS. RIGHT GROIN 6F EXOSEAL CDI. WATER GIVEN, NO N/V NOTED.
--- NOTE | 2016-11-17 17:30 | NUR ---
HOB ELEVATED 30 DEGREES. NO BLEEDING NOTED TO GROIN. SANDWICH TRAY GIVEN.
--- NOTE | 2016-11-17 17:50 | NUR ---
RIGHT FA PIV D/C'D WITH CATHETER INTACT, BAND AID TO SITE. UP TO BEDSIDE TO GET DRESSED.
--- NOTE | 2016-11-17 18:00 | NUR ---
DISCHARGE INSTRUCTIONS GIVEN, VERBALIZED UNDERSTANDING.
--- NOTE | 2016-11-17 18:06 | NUR ---
TAKEN OUT VIA WHEELCHAIR BY CATH MERCHANDISE CLERK. LEFT FACILITY WITH FAMILY MEMBER AND ALL PERSONAL BELONGINGS.
== END 2016-11-17 18:06 | disposition home or self-care (01) ==
LOC: D.CATH 09:50
PROVIDERS: Internal Medicine Cardiovascular Disease
DX: I25.119 Atherosclerotic heart disease of native coronary artery with unspecified angina pectoris (principal); T82.855A Stenosis of coronary artery stent, initial encounter; Z01.812 Encounter for preprocedural laboratory examination

== ENCOUNTER 2018-01-10 12:29 | Emergency (ER) | payer MEDICARE, MEDICAID ==
[~2018-01-10] VITALS: Ht 157.5 cm; Wt 127.3 kg
[2018-01-10 12:35] VITALS: Ht 157.5 cm; Wt 127.3 kg
[2018-01-10 14:51] LABS: BASOPHILS 0.3 % (0-2); HEMATOCRIT 33.4 % (36.0-48.0); HEMOGLOBIN 10.3 g/dL (12-16); LYMPHOCYTES 17.6 % (15-50); MCH 31.9 pg (26.0-34.0); MCHC 30.8 g/dL (31.0-37.0); MCV 103.4 fL (80.0-100.0); MEAN PLATELET VOLUME 11.1 fL (7.4-10.4); NEUTROPHILS 73.1 % (40-80); PLATELET COUNT 104 10x3/uL (130-400); RBC 3.23 10x6/uL (4.00-5.40); RDW 13.8 % (11.5-14.5)
[2018-01-10 15:46] LABS: ALBUMIN 2.9 g/dL (3.4-5.0); ALKALINE PHOSPHATASE 31 U/L (46-116); ALT (SGPT) 27 U/L (10-68); BILIRUBIN - TOTAL 0.56 mg/dL (0.2-1.3); CALC OSMOLALITY 296 mosm/kg (275-300); CHLORIDE - SERUM 100 mmol/L (98-107); CKMB 6.6 U/L (0.0-3.6); CREATINE KINASE 486 UL (21-215); CREATININE - SERUM 1.6 mg/dL (0.6-1.3); GLUCOSE 122 mg/dL (74-106); MAGNESIUM - SERUM 1.9 mg/dL (1.8-2.4); POTASSIUM - SERUM 3.8 mmol/L (3.5-5.1); PROTEIN - SERUM 6.5 g/dL (6.4-8.2); SODIUM 144 mmol/L (136-145); TROPONIN-I 0.028 ng/mL (0.000-0.060); UREA NITROGEN 38 mg/dL (7-18); eGFR NON AFRICAN AMERICAN 33 mL/min (90-120)
[2018-01-10 15:49] LABS: CARBON DIOXIDE 43.2 mmol/L (21.0-32.0)
[2018-01-10 19:27] VITALS: BP 127/56
== END 2018-01-10 19:00 | disposition home or self-care (01) ==
LOC: D.ER 12:29
PROVIDERS: Emergency Medicine
DX: E11.649 Type 2 diabetes mellitus with hypoglycemia without coma (principal); Z79.4 Long term (current) use of insulin; D64.9 Anemia, unspecified; E86.0 Dehydration; N28.9 Disorder of kidney and ureter, unspecified; I69.351 Hemiplegia and hemiparesis following cerebral infarction affecting right dominant side; I11.0 Hypertensive heart disease with heart failure; I50.9 Heart failure, unspecified; J44.9 Chronic obstructive pulmonary disease, unspecified; Z85.828 Personal history of other malignant neoplasm of skin; I48.91 Unspecified atrial fibrillation; I44.4 Left anterior fascicular block